=== PATIENT | female | born 1965 | race Caucasian/White ===

== ENCOUNTER 2020-07-14 06:58 | Emergency (ER) | payer MEDICAID ==
[~2020-07-14] VITALS: Ht 160 cm; Wt 77.1 kg
[2020-07-14 07:00] VITALS: BP 133/81
--- NOTE | 2020-07-14 07:09 | NUR ---
PT TAKEN TO BED 7
--- NOTE | 2020-07-14 07:12 | NUR ---
ED MD at bedside for eval.
--- NOTE | 2020-07-14 07:14 | NUR ---
PATIENT PRESENTS TO ED WITH A BEE STING TO HER RIGHT HAND SINCE SUNDAY. PT STATES THAT SHE IS NOW UNABLE TO MOVE HER HAND D/T THE STING. DENIES N/V/D; SKIN IS PINK/WARM/DRY; AAOX4 WITH EVEN AND STEADY GAIT; LUNGS CLEAR BL; HR EVEN AND REGULAR; PT DENIES ANY FEVER, CP, SOB, OR COUGH AT THIS TIME; PATIENT STATES PAIN OF 6/10 AT THIS TIME; VSS; PATIENT POSITIONED FOR COMFORT; HOB ELEVATED; BEDRAILS UP X2; BED DOWN. ER MD MADE AWARE OF PT STATUS.
[2020-07-14] MEDS ORDERED: ACETAMINOPHEN EXTRA STRENGTH 500 MG TAB PO ONE (07:15)
--- NOTE | 2020-07-14 08:00 | NUR ---
X-Ray at bedside.
[2020-07-14] MEDS ORDERED: TRIAMCINOLONE 40 MG/ML 5ML VIAL IA ONE (08:15)
[2020-07-14] MEDS ORDERED: TRIAMCINOLONE 40 MG/ML 5ML VIAL IA SCH (08:15)
[2020-07-14] MEDS ORDERED: LIDOCAINE MPF 1% 10 MG/ML VIAL INJ ONE (08:15)
[2020-07-14 09:17] VITALS: BP 127/80
== END 2020-07-14 09:18 | disposition home or self-care (01) ==
LOC: MED 06:58
DX: M75.31 Calcific tendinitis of right shoulder (principal); R03.0 Elevated blood-pressure reading, without diagnosis of hypertension
CPT/HCPCS: 73030; 99283; J2001; J3301